=== PATIENT | female | born 1965 | race African-American/Black ===

== ENCOUNTER 2022-05-09 10:56 | Emergency (ER) | payer MEDICAID ==
[~2022-05-09] VITALS: Ht 162.6 cm; Wt 80.0 kg
[2022-05-09] MEDS ORDERED: KETOROLAC TROMETH 60MG/2ML VIAL IM ONE (13:45)
[2022-05-09 13:51] VITALS: BP 122/68
[2022-05-09] MEDS ORDERED: PRED20TA2 PO (14:02)
[2022-05-09] MEDS ORDERED: IBUP800T27 PO (14:02)
== END 2022-05-09 14:05 | disposition home or self-care (01) ==
LOC: ER 10:56
DX: G56.01 Carpal tunnel syndrome, right upper limb (principal); J45.909 Unspecified asthma, uncomplicated
CPT/HCPCS: 96372; 99283; J1885